=== PATIENT | male | born 1945 | race Caucasian/White ===

== ENCOUNTER 2022-04-09 12:45 | Inpatient (IN) | payer OTHER ==
[2022-04-09] MEDS ORDERED: Acetaminophen 325 MG TAB PO PRN (13:38)
[2022-04-09] MEDS ORDERED: Ondansetron ODT 4 MG TAB PO PRN (13:40)
[2022-04-09] MEDS ORDERED: Senokot S 8.6-50 MG TAB PO PRN (13:40)
[2022-04-09] MEDS ORDERED: Ondansetron PF 4 MG/2 ML Vial IVP PRN (13:40)
[2022-04-09] MEDS ORDERED: Sodium Chloride 0.9% 1,000 ML IV SCH ×2 (13:45→15:15)
[2022-04-09] MEDS ORDERED: Dextrose 5% in Water 1,000 ML IV PRN (13:46)
[2022-04-09] MEDS ORDERED: Dextrose 50% Abboject 50 ML SYRINGE SLOW IVP PRN (13:46)
[2022-04-09 14:15] VITALS: BMI 30.4
[2022-04-09 14:41] LABS: Troponin I 0.068 ng/mL (< 0.028)
[2022-04-09] MEDS ORDERED: Sodium Chloride 0.9% 500 ML IV SCH (15:15)
[2022-04-09 15:44] LABS: Legionella Urinary Ag Negative (Negative)
[2022-04-09 15:45] LABS: Strep pneumo Urine Ag NEGATIVE (NEGATIVE)
[2022-04-09] MEDS: metFORMIN 500 MG TAB PO SCH (16:21)
[2022-04-09] MEDS: HumaLOG 300 UNITS/3 ML VIAL SC PRN ×2 (16:22→22:07)
[2022-04-09 17:29] LABS: Lactic Acid 3.2 mmol/L (0.5-2.2)
[2022-04-09] MEDS ORDERED: Furosemide 40 MG/4 ML VIAL ONE (17:35)
[2022-04-09 17:39] LABS: Troponin I 0.063 ng/mL (< 0.028)
[2022-04-09] MEDS ORDERED: Furosemide 40 MG/4 ML VIAL SLOW IVP SCH (17:45)
[2022-04-09] MEDS: Mometasone 100 MCG/PUFF (1 INHALER) INH SCH (19:00)
[2022-04-09] MEDS: Ipratropium Oral Inhaler INH SCH (19:00)
[2022-04-09] MEDS ORDERED: Famotidine 20 MG TAB PO SCH (21:00)
[2022-04-09] MEDS: Potassium Chloride 10 MEQ TAB PO SCH (21:14)
[2022-04-09] MEDS: Enoxaparin Sodium 40 MG/0.4 ML SYRINGE SC SCH (21:56)
[2022-04-09] MEDS: NPH, Human Insulin Isophane 300 UNIT/3 ML VIAL SC SCH (22:00)
[2022-04-09] MEDS: Sodium Chloride 0.9% 1,000 ML IV SCH (23:00)
[2022-04-10 05:23] LABS: #Monocytes 1.2 10x3/uL (0.0-1.1); #Neutrophils 11.8 10x3/uL (1.5-8.4); %Basophils 0.2 % (0.0-2.0); %Eosinophils 0.3 % (0.0-6.0); %Lymphocytes 9.5 % (18.0-47.0); %Monocytes 8.5 % (0.0-10.0); %Neutrophils 81.1 % (40.0-75.0); Hemoglobin 13.5 g/dL (13.5-17.5); Mean Corpuscular HGB CONC 33.1 g/dL (32.0-36.0); Mean Corpuscular Volume 87.6 fl (81.2-95.1); Platelet Count 157 10x3/uL (150-450); RBC Distribution Width 13.4 % (11.5-14.5); Red Blood Cell (RBC) Count 4.66 10x6/uL (4.32-5.72); White Blood Cell (WBC) Count 14.6 10x3/uL (3.5-10.5)
[2022-04-10] MEDS: Ipratropium Oral Inhaler INH SCH ×4 (05:25→20:02)
[2022-04-10] MEDS: Mometasone 100 MCG/PUFF (1 INHALER) INH SCH ×2 (05:25→20:09)
[2022-04-10 05:33] LABS: Anion Gap 16 mmol/L (10-20); BUN (Urea Nitrogen) 21 mg/dL (8.4-25.7); Calc. Creatinine Clearance 79 mL/min (70-130); Calcium 9.8 mg/dL (7.8-10.44); Carbon Dioxide 20 mmol/L (23-31); Chloride 106 mmol/L (98-107); Estimated GFR 78; Glucose 292 mg/dL (83-110); Sodium 138 mmol/L (136-145)
[2022-04-10 05:43] LABS: Magnesium 1.5 mg/dL (1.6-2.6)
[2022-04-10] MEDS: Benzonatate 100 MG CAP PO PRN ×3 (06:52→21:53)
[2022-04-10] MEDS: HumaLOG 300 UNITS/3 ML VIAL SC PRN ×5 (07:30→19:40)
[2022-04-10 07:42] LABS: ALV-art Gradient 458.025 mmHg (0-20); Actual Bicarbonate (HCO3a) 21.8 mEq/L (22-28); Base Excess (BEa) -2.1 mEq/L (-2.0 to +3.0); CO2 Tension 34.7 mmHg (35.0-45.0); Calcium, Ionized (arterial) 1.23 mmol/L (1.12-1.30); Carboxyhemoglobin (COHb) 0.4 gm% (0.0-3.0); Hemoglobin (Hb) 13.8 g/dL (14.0-18.0); Puncture Site RRA; pH, Arterial 7.42 (7.35-7.45)
[2022-04-10] MEDS ORDERED: Furosemide 20 MG TAB PO SCH (09:00)
[2022-04-10] MEDS ORDERED: Amlodipine 10 MG TAB PO SCH (09:00)
[2022-04-10] MEDS: metFORMIN 500 MG TAB PO SCH (10:12)
[2022-04-10] MEDS: Loratadine 10 MG TAB PO SCH (10:13)
[2022-04-10] MEDS: NPH, Human Insulin Isophane 300 UNIT/3 ML VIAL SC SCH ×2 (10:13→19:38)
[2022-04-10] MEDS: Citalopram 20 MG TAB PO SCH (10:13)
[2022-04-10] MEDS: Potassium Chloride 10 MEQ TAB PO SCH (10:13)
[2022-04-10] MEDS: Acetylcysteine 20% 200 MG/ML 30 ML VIAL INH SCH ×2 (10:38→20:00)
[2022-04-10] MEDS ORDERED: Vancomycin HCl 1 GM in Sodium Chloride 0.9% 250 ML 250 ML IVPB SCH (10:45)
[2022-04-10] MEDS ORDERED: Lactated Ringer's 500 ML IV SCH (11:15)
[2022-04-10 11:25] LABS: Magnesium 1.4 mg/dL (1.6-2.6); Phosphorus 2.9 mg/dL (2.3-4.7)
[2022-04-10] MEDS ORDERED: Electrolyte Replacement Protocol 1 EACH FS SCH (11:30)
[2022-04-10] MEDS ORDERED: Lactated Ringer's 1,000 ML IV SCH ×3 (11:30→14:18)
[2022-04-10] MEDS ORDERED: Magnesium 2 GM/50 ML(in water) 2 GM in Premix Bag 1 BAG IVPB SCH (11:30)
[2022-04-10] MEDS ORDERED: Meropenem 1 GM in Sodium Chloride 0.9% 100 ML IVPB SCH (11:45)
[2022-04-10] MEDS ORDERED: Acetylcysteine 20% 200 MG/ML 30 ML VIAL INH SCH (13:00)
[2022-04-10] MEDS: methylPREDNISolone Sod Succ 40 MG VIAL IVP SCH ×3 (13:34→23:18)
[2022-04-10 17:49] LABS: Lactic Acid 4.1 mmol/L (0.5-2.2)
[2022-04-10] MEDS: Enoxaparin Sodium 40 MG/0.4 ML SYRINGE SC SCH (19:31)
[2022-04-10] MEDS: Meropenem 1 GM in Sodium Chloride 0.9% 100 ML IVPB SCH (19:31)
[2022-04-10] MEDS: Sodium Chloride 0.9% 1,000 ML IV SCH (19:47)
[2022-04-10] MEDS: VANCOMYCIN 1.25 GM/250 ML BAG 1.25 GM in Premix Bag 1 BAG IVPB SCH (23:17)
[2022-04-11] MEDS: Acetylcysteine 20% 200 MG/ML 30 ML VIAL INH SCH ×4 (01:40→19:08)
[2022-04-11] MEDS: Meropenem 1 GM in Sodium Chloride 0.9% 100 ML IVPB SCH ×3 (03:11→20:16)
[2022-04-11 04:26] LABS: ALT (SGPT) 31 U/L (8-55); AST (SGOT) 36 U/L (5-34); Albumin 3.7 g/dL (3.4-4.8); Alkaline Phosphatase 84 U/L (40-110); Anion Gap 17 mmol/L (10-20); BUN (Urea Nitrogen) 26 mg/dL (8.4-25.7); Bilirubin, Total 0.6 mg/dL (0.2-1.2); Calc. Creatinine Clearance 74 mL/min (70-130); Calcium 9.4 mg/dL (7.8-10.44); Carbon Dioxide 20 mmol/L (23-31); Chloride 102 mmol/L (98-107); Estimated GFR 73; Globulin 3.9 g/dL (2.4-3.5); Glucose 409 mg/dL (83-110); Magnesium 1.8 mg/dL (1.6-2.6); Potassium 3.9 mmol/L (3.5-5.1); Protein, Total 7.6 g/dL (5.8-8.1); Sodium 135 mmol/L (136-145)
[2022-04-11 04:29] LABS: Phosphorus 2.5 mg/dL (2.3-4.7)
[2022-04-11 04:30] LABS: #Monocytes 0.4 10x3/uL (0.0-1.1); #Neutrophils 10.3 10x3/uL (1.5-8.4); %Basophils 0.1 % (0.0-2.0); %Lymphocytes 7.9 % (18.0-47.0); %Neutrophils 88.3 % (40.0-75.0); Mean Corpuscular HGB CONC 33.2 g/dL (32.0-36.0); Mean Corpuscular Volume 87.1 fl (81.2-95.1); Platelet Count 161 10x3/uL (150-450); RBC Distribution Width 13.3 % (11.5-14.5); Red Blood Cell (RBC) Count 4.49 10x6/uL (4.32-5.72); White Blood Cell (WBC) Count 11.6 10x3/uL (3.5-10.5)
[2022-04-11] MEDS: HumaLOG 300 UNITS/3 ML VIAL SC PRN ×3 (04:30→17:06)
[2022-04-11] MEDS ORDERED: Magnesium 2 GM/50 ML(in water) 2 GM in Premix Bag 1 BAG IVPB SCH (05:00)
[2022-04-11] MEDS: methylPREDNISolone Sod Succ 40 MG VIAL IVP SCH (05:07)
[2022-04-11 06:56] LABS: Lactic Acid 2.4 mmol/L (0.5-2.2)
[2022-04-11] MEDS ORDERED: Lantus 1000 UNITS/10 ML VIAL SC SCH ×2 (07:10→21:00)
[2022-04-11] MEDS: Ipratropium Oral Inhaler INH SCH (08:04)
[2022-04-11] MEDS: Mometasone 100 MCG/PUFF (1 INHALER) INH SCH ×2 (08:09→19:10)
[2022-04-11] MEDS: Citalopram 20 MG TAB PO SCH (08:21)
[2022-04-11] MEDS: Amlodipine 5 MG TAB PO SCH (08:21)
[2022-04-11] MEDS: Loratadine 10 MG TAB PO SCH (08:22)
[2022-04-11] MEDS: NPH, Human Insulin Isophane 300 UNIT/3 ML VIAL SC SCH ×3 (08:22→20:17)
[2022-04-11] MEDS ORDERED: NPH, Human Insulin Isophane 300 UNIT/3 ML VIAL SC SCH ×4 (09:00→21:00)
[2022-04-11] MEDS ORDERED: Electrolyte Replacement Protocol 1 EACH FS SCH (09:15)
[2022-04-11] MEDS: Lactated Ringer's 1,000 ML IV SCH (10:06)
[2022-04-11] MEDS: VANCOMYCIN 1.25 GM/250 ML BAG 1.25 GM in Premix Bag 1 BAG IVPB SCH ×2 (10:13→23:17)
[2022-04-11] MEDS ORDERED: HumaLOG 300 UNITS/3 ML VIAL SC PRN (11:15)
[2022-04-11] MEDS ORDERED: HumaLOG 300 UNITS/3 ML VIAL SC SCH (11:30)
[2022-04-11] MEDS: Enoxaparin Sodium 40 MG/0.4 ML SYRINGE SC SCH (20:17)
[2022-04-11 22:43] LABS: Vancomycin, Trough 12.1 ug/mL
[2022-04-12] MEDS: Acetylcysteine 20% 200 MG/ML 30 ML VIAL INH SCH ×4 (00:43→18:49)
[2022-04-12 03:40] LABS: Hemoglobin 11.8 g/dL (13.5-17.5); Mean Corpuscular HGB CONC 33.1 g/dL (32.0-36.0); Mean Corpuscular Hemoglobin 28.6 pg (27.0-33.0); Mean Corpuscular Volume 86.7 fl (81.2-95.1); Mean Platelet Volume 9.9 fl (7.4-10.4); Platelet Count 152 10x3/uL (150-450); RBC Distribution Width 13.2 % (11.5-14.5); Red Blood Cell (RBC) Count 4.12 10x6/uL (4.32-5.72)
[2022-04-12 04:00] LABS: ALT (SGPT) 25 U/L (8-55); AST (SGOT) 31 U/L (5-34); Albumin 3.3 g/dL (3.4-4.8); Alkaline Phosphatase 91 U/L (40-110); Anion Gap 13 mmol/L (10-20); BUN (Urea Nitrogen) 28 mg/dL (8.4-25.7); Bilirubin, Total 0.5 mg/dL (0.2-1.2); Calc. Creatinine Clearance 87 mL/min (70-130); Calcium 8.7 mg/dL (7.8-10.44); Carbon Dioxide 21 mmol/L (23-31); Chloride 105 mmol/L (98-107); Estimated GFR 87; Globulin 3.4 g/dL (2.4-3.5); Glucose 295 mg/dL (83-110); Potassium 3.8 mmol/L (3.5-5.1); Protein, Total 6.7 g/dL (5.8-8.1); Sodium 135 mmol/L (136-145)
[2022-04-12] MEDS: Meropenem 1 GM in Sodium Chloride 0.9% 100 ML IVPB SCH ×3 (04:15→20:40)
[2022-04-12 04:21] LABS: MDiff Complete? YES; Platelet Morphology Comment Appears Adequate
[2022-04-12 04:24] LABS: Band 2 % (5-11); Eosinophils 1 % (0-10); Lymphocytes 13 % (21-51); Monocytes 8 % (0-10); Neutrophil 75 % (42-75); Reactive Lymphocytes 1 % (0-10)
[2022-04-12] MEDS ORDERED: Magnesium 2 GM/50 ML(in water) 2 GM in Premix Bag 1 BAG IVPB SCH (04:30)
[2022-04-12] MEDS: Lactated Ringer's 1,000 ML IV SCH (07:43)
[2022-04-12] MEDS: Citalopram 20 MG TAB PO SCH (08:23)
[2022-04-12] MEDS: Amlodipine 5 MG TAB PO SCH (08:23)
[2022-04-12] MEDS: NPH, Human Insulin Isophane 300 UNIT/3 ML VIAL SC SCH ×3 (08:24→20:41)
[2022-04-12] MEDS: Loratadine 10 MG TAB PO SCH (08:24)
[2022-04-12] MEDS: Mometasone 100 MCG/PUFF (1 INHALER) INH SCH ×2 (08:40→19:11)
[2022-04-12] MEDS ORDERED: NPH, Human Insulin Isophane 300 UNIT/3 ML VIAL SC SCH (09:00)
[2022-04-12] MEDS: HumaLOG 300 UNITS/3 ML VIAL SC PRN ×3 (11:34→20:43)
[2022-04-12] MEDS: methylPREDNISolone Sod Succ 40 MG VIAL IVP SCH (20:40)
[2022-04-12] MEDS: Enoxaparin Sodium 40 MG/0.4 ML SYRINGE SC SCH (20:45)
[2022-04-13 03:23] LABS: #Monocytes 0.2 10x3/uL (0.0-1.1); #Neutrophils 6.1 10x3/uL (1.5-8.4); %Basophils 0.1 % (0.0-2.0); %Eosinophils 0.1 % (0.0-6.0); %Lymphocytes 10.2 % (18.0-47.0); %Monocytes 3.1 % (0.0-10.0); %Neutrophils 86.2 % (40.0-75.0); Hemoglobin 13.3 g/dL (13.5-17.5); Mean Corpuscular HGB CONC 33.5 g/dL (32.0-36.0); Mean Corpuscular Hemoglobin 28.5 pg (27.0-33.0); Mean Corpuscular Volume 85.2 fl (81.2-95.1); Platelet Count 140 10x3/uL (150-450); RBC Distribution Width 13.1 % (11.5-14.5); Red Blood Cell (RBC) Count 4.66 10x6/uL (4.32-5.72); White Blood Cell (WBC) Count 7.1 10x3/uL (3.5-10.5)
[2022-04-13 03:42] LABS: ALT (SGPT) 38 U/L (8-55); AST (SGOT) 52 U/L (5-34); Albumin 3.4 g/dL (3.4-4.8); Alkaline Phosphatase 94 U/L (40-110); Anion Gap 12 mmol/L (10-20); BUN (Urea Nitrogen) 24 mg/dL (8.4-25.7); Bilirubin, Total 0.5 mg/dL (0.2-1.2); Calc. Creatinine Clearance 93 mL/min (70-130); Calcium 8.7 mg/dL (7.8-10.44); Carbon Dioxide 23 mmol/L (23-31); Chloride 102 mmol/L (98-107); Estimated GFR 89; Globulin 3.5 g/dL (2.4-3.5); Glucose 332 mg/dL (83-110); Magnesium 1.8 mg/dL (1.6-2.6); Potassium 4.4 mmol/L (3.5-5.1); Protein, Total 6.9 g/dL (5.8-8.1); Sodium 133 mmol/L (136-145)
[2022-04-13] MEDS: Meropenem 1 GM in Sodium Chloride 0.9% 100 ML IVPB SCH (04:41)
[2022-04-13] MEDS ORDERED: Magnesium 2 GM/50 ML(in water) 2 GM in Premix Bag 1 BAG IVPB SCH (06:00)
[2022-04-13] MEDS: HumaLOG 300 UNITS/3 ML VIAL SC PRN ×3 (06:08→16:06)
[2022-04-13] MEDS: Mometasone 100 MCG/PUFF (1 INHALER) INH SCH ×2 (07:50→18:35)
[2022-04-13] MEDS: Amlodipine 5 MG TAB PO SCH (07:55)
[2022-04-13] MEDS: methylPREDNISolone Sod Succ 40 MG VIAL IVP SCH (07:55)
[2022-04-13] MEDS: Loratadine 10 MG TAB PO SCH (07:55)
[2022-04-13] MEDS: Citalopram 20 MG TAB PO SCH (07:55)
[2022-04-13] MEDS: NPH, Human Insulin Isophane 300 UNIT/3 ML VIAL SC SCH ×3 (07:59→21:19)
[2022-04-13] MEDS ORDERED: NPH, Human Insulin Isophane 300 UNIT/3 ML VIAL SC SCH (21:00)
[2022-04-13] MEDS: Enoxaparin Sodium 40 MG/0.4 ML SYRINGE SC SCH (21:19)
[2022-04-14 05:25] LABS: %Basophils 0.2 % (0.0-2.0); %Eosinophils 0.3 % (0.0-6.0); %Lymphocytes 18.1 % (18.0-47.0); %Monocytes 9.3 % (0.0-10.0); %Neutrophils 71.6 % (40.0-75.0); Hemoglobin 13.1 g/dL (13.5-17.5); Mean Corpuscular HGB CONC 34.4 g/dL (32.0-36.0); Mean Corpuscular Hemoglobin 28.5 pg (27.0-33.0); Mean Platelet Volume 9.9 fl (7.4-10.4); Platelet Count 168 10x3/uL (150-450); Red Blood Cell (RBC) Count 4.59 10x6/uL (4.32-5.72); White Blood Cell (WBC) Count 11.1 10x3/uL (3.5-10.5)
[2022-04-14 05:40] LABS: ALT (SGPT) 39 U/L (8-55); AST (SGOT) 37 U/L (5-34); Albumin 3.4 g/dL (3.4-4.8); Alkaline Phosphatase 103 U/L (40-110); Anion Gap 12 mmol/L (10-20); BUN (Urea Nitrogen) 25 mg/dL (8.4-25.7); Bilirubin, Total 0.5 mg/dL (0.2-1.2); Calc. Creatinine Clearance 91 mL/min (70-130); Calcium 8.7 mg/dL (7.8-10.44); Carbon Dioxide 23 mmol/L (23-31); Chloride 100 mmol/L (98-107); Estimated GFR 88; Globulin 3.5 g/dL (2.4-3.5); Glucose 409 mg/dL (83-110); Potassium 3.9 mmol/L (3.5-5.1); Protein, Total 6.9 g/dL (5.8-8.1); Sodium 131 mmol/L (136-145)
[2022-04-14] MEDS: HumaLOG 300 UNITS/3 ML VIAL SC PRN (07:22)
[2022-04-14] MEDS: Mometasone 100 MCG/PUFF (1 INHALER) INH SCH (07:25)
[2022-04-14] MEDS ORDERED: predniSONE 20 MG TAB PO SCH ×2 (08:00)
[2022-04-14] MEDS ORDERED: Magnesium 2 GM/50 ML(in water) 2 GM in Premix Bag 1 BAG IVPB SCH (09:00)
[2022-04-14] MEDS ORDERED: metFORMIN 500 MG TAB PO SCH ×2 (09:15→17:00)
[2022-04-14] MEDS: Loratadine 10 MG TAB PO SCH (10:30)
[2022-04-14] MEDS: Amlodipine 5 MG TAB PO SCH (10:30)
[2022-04-14] MEDS: Citalopram 20 MG TAB PO SCH (10:30)
[2022-04-14] MEDS: NPH, Human Insulin Isophane 300 UNIT/3 ML VIAL SC SCH (10:48)
[2022-04-14 11:48] VITALS: BP 122/58; TEMP 97.4
== END 2022-04-14 17:37 | disposition home or self-care (01) | DRG 871 ==
LOC: CSHTELE 12:45 → CSHICU 04-10 14:12 → CSHTELE 04-13 15:05
PROVIDERS: ADMIT Family Medicine; ATTEND Internal Medicine
DX: A41.9 Sepsis, unspecified organism (principal); J18.9 Pneumonia, unspecified organism; J96.01 Acute respiratory failure with hypoxia; J44.0 Chronic obstructive pulmonary disease with (acute) lower respiratory infection; E87.1 Hypo-osmolality and hyponatremia; I47.2 Ventricular tachycardia; R65.20 Severe sepsis without septic shock; I10 Essential (primary) hypertension; L40.9 Psoriasis, unspecified; K21.9 Gastro-esophageal reflux disease without esophagitis; Z20.822 Contact with and (suspected) exposure to COVID-19; F43.10 Post-traumatic stress disorder, unspecified; E11.65 Type 2 diabetes mellitus with hyperglycemia; T38.0X5A Adverse effect of glucocorticoids and synthetic analogues, initial encounter; Z88.0 Allergy status to penicillin; Z88.2 Allergy status to sulfonamides; Z91.010 Allergy to peanuts; Z88.8 Allergy status to other drugs, medicaments and biological substances; Z79.4 Long term (current) use of insulin; Z79.899 Other long term (current) drug therapy; Z79.84 Long term (current) use of oral hypoglycemic drugs; Z87.891 Personal history of nicotine dependence
CPT/HCPCS: 36415; 36416; 36600; 71045; 80048; 80053; 80202; 82805; 83605; 83735; 83880; 84100; 84145; 85025; 87081; 87449; 87899; 93005; 93010; 93306; 94640; 94664; 94760; J0132; J1650; J1815; J1940; J1956; J2185; J2920; J3370; J3475; J3490; J7030; J7050; J7120; J7620